=== PATIENT | female | born 1970 | race Caucasian/White ===

== ENCOUNTER 2017-03-26 08:56 | Emergency (ER) | payer OTHER ==
[2017-03-26] MEDS ORDERED: FLUCONAZOLE 100 MG TABLET PO STA (09:06)
--- NOTE | 2017-03-26 09:08 | ED Physician Documentation ---
History of Present Illness - Stated complaint Stated Complaint: RASH/FEMALE - Chief complaint Chief Complaint: Wound - Additonal information Additional information: hx from pt 46 f denies preg to ER CC thrush and vaginal yeast infection no diabetes, no recent steroid use, no immune compromise she thinks may be a side effect of her fibromyalgia and poor diet her sx specifically are dry lips and a cracked tongue and vaginal redness itching and white dc no present fever cough NVD abd pain tried OTC cream and supp yesterday s relief Review of Systems Constitutional: denies: Fever Throat: reports: Oral lesions / sores GI: denies: Abdominal Pain : reports: Discharge. denies: Now EGA Immunocompromised: denies: Immunocompromised PD PAST MEDICAL HISTORY - Present Medications Home Medications: Ambulatory Orders Medication Instructions Recorded Confirmed Buprenorphine HCl/Naloxone HCl 03/26/17 [Suboxone 8 mg-2 mg Sl Film] Clotrimazole [Clotrimazole 3] 1 applic VG QPM #3 cream.appl 03/26/17 Levothyroxine [Synthroid] 50 mcg PO QDAC 03/26/17 03/26/17 Pregabalin [Lyrica] 225 mg PO 03/26/17 Tizanidine HCl [Zanaflex] 4 mg PO 03/26/17 03/26/17 - Allergies Allergies/Adverse Reactions: Allergies Allergy/AdvReac Type Severity Reaction Status Date / Time anti psychotics Allergy Unknown Unknown Uncoded 03/26/17 09:06 PD ED PE NORMAL - Vitals Vital signs reviewed: Yes - General General: Alert and oriented X 3 - HEENT HEENT: Other (chapped lips, no thrush) - Cardiac Cardiac: RRR - Respiratory Respiratory: No respiratory distress, Clear bilaterally - Abdomen Abdomen: Soft, Non tender - Female 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 (Johnna - external exam shows labial erythema and whitish thick dc c/w yeast vaginitis) - Neuro Neuro: Alert and oriented X 3 Results - Vitals Vitals: Vital Signs - 24 hr 03/26/17 09:01 Temperature 36.6 C Heart Rate 96 Respiratory 18 Rate Blood Pressure 165/116 H O2 Saturation 100 Oxygen O2 Source Room air Departure - Departure Disposition: 01 Home, Self Care Clinical Impression: Yeast vaginitis Condition: Good Instructions: ED Vaginal Infec Fungal Khadijah Prescriptions: Clotrimazole [Clotrimazole 3] 1 applic VG QPM #3 cream.appl Comments: You do not have thrush It does look like a yeast vaginitis - the pill we gave you and the vaginal cream used nightly for three days should clear that up If your symptoms persist, please see your PMD Also your blood pressure was high - please follow up with your PMD to get it rechecked
[2017-03-26] MEDS ORDERED: FLUCONAZOLE 100 MG TABLET ONE (09:15)
[2017-03-26 09:23] VITALS: BP 155/102
== END 2017-03-26 09:23 | disposition home or self-care (01) ==
LOC: ED 08:56
DX: B37.3 Candidiasis of vulva and vagina (principal); M79.7 Fibromyalgia
CPT/HCPCS: 99283; A9270

== ENCOUNTER 2017-03-27 10:59 | Emergency (ER) | payer OTHER ==
[2017-03-27] MEDS ORDERED: SODIUM CHLORIDE 0.9% 1,000 ML IV ONE (11:18)
--- NOTE | 2017-03-27 11:33 | ED Physician Documentation ---
History of Present Illness - Stated complaint Stated Complaint: N/V - Chief complaint Chief Complaint: Abd Pain - Additonal information Additional information: hx from pt had GI sx a week ago got better seen in ER yesterday for yeast infection now back by ambulance for nausea no vomiting and diarrhea s blood denies bad food no pain Review of Systems Constitutional: denies: Fever Cardiac: denies: Chest pain / pressure Respiratory: denies: Cough GI: reports: Nausea, Diarrhea. denies: Abdominal Pain, Bloody / black stool Endocrine: denies: Easy bruising / bleeding Immunocompromised: denies: Immunocompromised PD PAST MEDICAL HISTORY - Past Medical History Musculoskeletal: Fibromyalgia - Present Medications Home Medications: Ambulatory Orders Medication Instructions Recorded Confirmed Clotrimazole [Clotrimazole 3] 1 applic VG QPM #3 cream.appl 03/26/17 03/27/17 Levothyroxine [Synthroid] 50 mcg PO QDAC 03/26/17 03/27/17 Pregabalin [Lyrica] 225 mg PO BID 03/26/17 03/27/17 Tizanidine HCl [Zanaflex] 4 mg PO DAILY PRN 03/26/17 03/27/17 Buprenorphine HCl/Naloxone HCl 1 film PO TID PRN 03/27/17 03/27/17 [Suboxone 8 mg-2 mg Sl Film] Ondansetron Odt [Zofran] 4 mg TL Q6H PRN #10 tablet 03/27/17 - Allergies Allergies/Adverse Reactions: Allergies Allergy/AdvReac Type Severity Reaction Status Date / Time anti psychotics Allergy Unknown Unknown Uncoded 03/27/17 11:05 - Social History Does the pt smoke?: No Smoking Status: Never smoker PD ED PE NORMAL - Vitals Vital signs reviewed: Yes - Cardiac Cardiac: RRR - Respiratory Respiratory: No respiratory distress, Clear bilaterally - Abdomen Abdomen: Soft, Non tender - Derm Derm: Normal color - Neuro Neuro: Alert and oriented X 3 Results - Vitals Vitals: Vital Signs - 24 hr 03/27/17 03/27/17 11:01 12:07 Temperature 36.5 C Heart Rate 69 Respiratory 18 Rate Blood Pressure 167/102 H 144/103 H O2 Saturation 100 95 Oxygen O2 Source Room air - Labs Labs: Laboratory Tests 03/27/17 03/27/17 11:25 11:25 WBC 8.5 RBC 4.80 Hgb 13.1 Hct 38.6 MCV 80.5 L MCH 27.2 MCHC 33.8 RDW 13.7 Plt Count 259 MPV 9.0 Neut # 6.7 H Lymph # 1.3 L Brooks # 0.3 Eos # 0.1 Baso # 0.0 Absolute Nucleated RBC 0.00 Nucleated RBC % 0.0 Sodium 138 Potassium 3.7 Chloride 104 Carbon Dioxide 26 Anion Gap 8.0 BUN 17 Creatinine 0.9 Estimated GFR (MDRD) 67 L Glucose 105 H Calcium 8.9 Total Bilirubin 0.5 AST 19 ALT 20 Alkaline Phosphatase 57 Total Protein 7.6 Albumin 4.3 Globulin 3.3 Albumin/Globulin Ratio 1.3 Lipase 24 PD MEDICAL DECISION MAKING - ED course ED course: feels better after EMS zofran Departure - Departure Disposition: 01 Home, Self Care Clinical Impression: Gastroenteritis Condition: Good Instructions: ED Gastroenteritis Non Infec Prescriptions: Ondansetron Odt [Zofran] 4 mg TL Q6H PRN #10 tablet PRN Reason: Nausea / Vomiting Comments: Your labs looked fine I have prescribed more zofran to ease your nausea and help you stay hydrated Please follow up with your PMD for a recheck if not better in 3 days Return if worse (severe pain, vomiting or pooping blood, etc) And please get your blood pressure rechecked - it was high today
[2017-03-27 11:36] LABS: BASOPHILS % (AUTO) 0.3 %; EOSINOPHILS # (AUTO) 0.1 10^3/uL (0.0-0.7); EOSINOPHILS % (AUTO) 1.2 %; HCT - HEMATOCRIT 38.6 % (37.0-47.0); HGB - HEMOGLOBIN 13.1 g/dL (12.0-16.0); LYMPHOCYTES # (AUTO) 1.3 10^3/uL (1.5-3.5); LYMPHOCYTES % (AUTO) 15.8 %; MEAN CORPUSCULAR HEMOGLOBIN 27.2 pg (27.0-31.0); MEAN CORPUSCULAR HGB CONC 33.8 g/dL (32.0-36.0); MEAN CORPUSCULAR VOLUME 80.5 fL (81.0-99.0); MONOCYTES # (AUTO) 0.3 10^3/uL (0.0-1.0); MONOCYTES % (AUTO) 3.9 %; NEUTROPHILS # (AUTO) 6.7 10^3/uL (1.5-6.6); NEUTROPHILS % (AUTO) 78.8 %; RED CELL DISTRIBUTION WIDTH 13.7 % (12.0-15.0); UNCORRECTED WHITE BLOOD COUNT 8.5 x10^3/uL; WHITE BLOOD COUNT 8.5 x10^3/uL (4.8-10.8)
[2017-03-27 11:48] LABS: ALBUMIN/GLOBULIN RATIO 1.3 (1.0-2.2); BILIRUBIN,TOTAL 0.5 mg/dL (0.2-1.0); CALCIUM 8.9 mg/dL (8.5-10.3); CREATININE 0.9 mg/dL (0.4-1.0); POTASSIUM 3.7 mmol/L (3.5-5.0); TOTAL PROTEIN 7.6 g/dL (6.7-8.2)
[2017-03-27 12:07] VITALS: BP 144/103
== END 2017-03-27 12:24 | disposition home or self-care (01) ==
LOC: EDUNIT# → ED 10:59
DX: K52.9 Noninfective gastroenteritis and colitis, unspecified (principal)
CPT/HCPCS: 36415; 80053; 83690; 85025; 96360; 99283; 99284